=== PATIENT | female | born 1990 | race African-American/Black ===

== ENCOUNTER 2018-01-19 10:12 | Inpatient (IN) ==
[2018-01-19] MEDS ORDERED: Naloxone Inj 0.4 MG/ML Vial IV.PUSH PRN (11:14)
[2018-01-19] MEDS ORDERED: Sodium Chlor 0.9% Inj 500 ML IV.SIG PRN (11:14)
[2018-01-19] MEDS ORDERED: fentaNYL Citrate Inj 100 MCG/2 ML Ampul IV.PUSH PRN ×2 (11:14)
[2018-01-19] MEDS ORDERED: Sod Chloride 0.9% Inj 1,000 ML IV.CONT PRN (11:14)
[2018-01-19] MEDS ORDERED: Oxytocin 30 Units/500ml Premix 30 UNITS/500 ML BAG IV.SIG ONE ×2 (11:14→20:16)
[2018-01-19] MEDS ORDERED: Citric Acid/Sodium Citrate Liq 30 ML UDC PO SCH (11:15)
--- NOTE | 2018-01-19 11:20 | P.HPOB ---
History of Present Illness Service: obstetrics Primary Care Physician: No Primary Care Physician Chief Complaint: SROM/contractions History of Present Illness: 27 yo with EDC 01/18/18 presents for c/o leakage of fluid and contractions, ruled in for rupture, clear fluid. Pt was late entry to care at 29 weeks, had been seen at 15 weeks in [place]. History of alcohol abuse in first trimester, lost custody of first child due to DUI. Has history of with prior delivery in 2014 for chorioamnionitis/non-reassuring heart tones, operative note reviewed by me, confirms low transverse uterine incision. Patient desires trial of labor. GBS negative. Weeks Gestation:: 40 Para: 1 : 2 Last menstrual period: 04/13/17 Total # of Miscarriage(s): 0 Total # of Abortions (Spontaneous & Elective): 0 - Inpatient Certification I certify that the inpatient services were ordered in accordance with Medicare regulations governing the order. This includes certification that hospital inpatient services are reasonable and necessary and in the case of services not specified as inpatient-only under 42 CFR 419.22(n), that they are appropriately provided as inpatient services in accordance to with the 2-midnight benchmark under 43 CFR 412.3(e) Estimated Total Length of Stay (Days): 4 Plans for Post Hospital Care: Home Review of Systems All other systems reviewed negative except as stated in [facility] - Medical History Medical History: Medical History (Last Updated 01/19/18 @ 11:19 by Kisha Melendez MD) ADHD History of alcohol abuse Migraines - Surgical History Surgical History: Surgical History (Last Updated 01/19/18 @ 11:19 by Kisha eMlendez MD) History of delivery - Family History Family History: Family History (Last Updated 01/19/18 @ 11:23 by Kisha Melendez MD) Other No significant family history - Social History I have reviewed the patient's Social History: Yes - Tobacco History Second Hand Smoke Exposure: No Tobacco Use In Past 30 Days: No Smoking Status: Former smoker - Substance Use History Substance History: Past History (history of alcohol abuse through first trimester) - Travel History History of Recent Travel: No Recent Travel in the [place] Within the Last 8 Weeks: No Recent Travel Out of the Country Within the Last 8 Weeks: No Medications and Allergies Allergies Allergy/AdvReac Type Severity Reaction Status Date / Time latex Allergy Hives Verified 01/19/18 10:53 Sulfa (Sulfonamide Allergy Hives Verified 01/19/18 10:56 Antibiotics) Exam Vital signs: Vital Signs 01/19/18 10:39 01/19/18 10:45 Pulse Rate 61 Respiratory Rate 18 Blood Pressure 108/61 - Constitutional mild distress - Routine HEENT Exam Head: Present: normocephalic, atraumatic Eye: Present: EOMI, conjunctivae pink ENT: Present: mucous membranes moist. Absent: sinus tenderness - Routine Neck Exam Present: supple, full ROM - Routine Chest/Breast/Axilla Exam Chest wall: Absent: tenderness, mass - Routine Respiratory Exam Absent: accessory muscle use, decreased breath sounds - Routine Cardiovascular Exam Present: RRR. Absent: bradycardia - Routine Abdominal Exam Absent: guarding Comments: gravid c/w dates - Routine Extremities Exam Absent: cyanosis, clubbing - Routine Skin Exam Present: intact. Absent: erythema - Routine Neurological Exam Present: alert, oriented X3 Results - Labs Group B Strep: Negative Caprini VTE Risk Assessment Caprini VTE Risk Assessment: No/Low Risk (score <= 1) VTE Pharmacological Exception Reason: Epidural catheter Caprini Risk Assessment Model: Point Value = 1 Point Value = 2 Point Value = 3 Point Value = 5 Age 41-60 Minor surgery BMI > 25 kg/m2 Swollen legs Varicose veins or History of unexplained or recurrent spontaneous Oral contraceptives or hormone replacement Sepsis (< 1 month) Serious lung disease, including pneumonia (< 1 month) Abnormal pulmonary function Acute myocardial infarction Congestive heart failure (< 1 month) History of inflammatory bowel disease Medical patient at bed rest Age 61-74 Arthroscopic surgery Major open surgery (> 45 min) Laparoscopic surgery (> 45 min) Malignancy Confined to bed (> 72 hours) Immobilizing plaster cast Central venous access Age >= 75 History of VTE Family history of VTE Factor V Leiden Prothrombin [id number] Lupus anticoagulant Anticardiolipin antibodies Elevated serum homocysteine Heparin-induced thrombocytopenia Other congenital or acquired thrombophilia Stroke (< 1 month) Elective arthroplasty Hip, pelvis, or leg fracture Acute spinal cord injury (< 1 month) Prophylaxis Regimen: Total Risk Factor Score Risk Level Prophylaxis Regimen 0-1 Low Early ambulation 2 Moderate Order ONE of the following: *Sequential Compression Device (SCD) *Heparin 5000 units SQ BID 3-4 Higher Order ONE of the following medications: *Heparin 5000 units SQ TID *Enoxaparin/Lovenox 40 mg SQ daily (WT < 150 kg, CrCl > 30 mL/min) *Enoxaparin/Lovenox 30 mg SQ daily (WT < 150 kg, CrCl > 10-29 mL/min) *Enoxaparin/Lovenox 30 mg SQ BID (WT < 150 kg, CrCl > 30 mL/min) AND/OR *Sequential Compression Device (SCD) 5 or more Highest Order ONE of the following medications: *Heparin 5000 units SQ TID (Preferred with Epidurals) *Enoxaparin/Lovenox 40 mg SQ daily (WT < 150 kg, CrCl > 30 mL/min) *Enoxaparin/Lovenox 30 mg SQ daily (WT < 150 kg, CrCl > 10-29 mL/min) *Enoxaparin/Lovenox 30 mg SQ BID (WT < 150 kg, CrCl > 30 mL/min) AND *Sequential Compression Device (SCD) Assessment and Plan - Diagnosis (1) Active labor at term Status: Acute (2) Leakage, amniotic fluid Code(s): O42.90 - Premature rupture of membranes, unspecified as to length of time between rupture and onset of labor, unspecified weeks of gestation Status : Acute (3) History of delivery Code(s): Z98.891 - History of uterine scar from previous surgery Status: Chronic (4) 40 weeks gestation of Code(s): Z3A.40 - 40 weeks gestation of Status: Acute - Plan 27 yo with EDC 01/18/18 presents to OB ED with c/o leakage of fluid, contractions, rules in for SROM/labor, h/o desires TOLAC 1) SROM/labor, h/o : reviewed r/b/a of TOLAC, pt consents, ruled in for SROM, admit for active mgmt 2) GBS neg 3) h/o alcohol abuse in first trimester: aware, pt states has been clean since 15 weeks gestation; did lose custody of first child due to DUI (pt's mother has custody) 4) status: vertex, female, Cat I tracing Discharge Planning: routine, 2-3d PP
[2018-01-19 12:12] LABS: Baso % (Auto) 0.2 % (0.0-2.0); Eos % (Auto) 0.4 % (0.0-4.0); Hematocrit 36.5 % (35.0-46.0); Hemoglobin 12.1 gm/dL (11.6-15.3); Lymph # (Auto) 0.9 th/mm3 (1.0-4.8); Mean Corpuscular HGB Conc 33.2 % (32.0-36.0); Mean Corpuscular Hemoglobin 30.7 pg (27.0-34.0); Mean Corpuscular Volume 92.6 fL (80.0-100.0); Mean Platelet Volume 8.3 fL (7.0-11.0); Mono # (Auto) 0.5 th/mm3 (0.0-0.9); Mono % (Auto) 5.4 % (0.0-8.0); Platelet Count 228 th/mm3 (150-450); Red Blood Count 3.94 mil/mm3 (4.00-5.30); Red Cell Distribution Width 12.3 % (11.6-17.2); White Blood Count 9.5 th/mm3 (4.0-11.0)
[2018-01-19] MEDS ORDERED: fentaNYL 2MCG-Bupiv 0.125% Epi 150 ML EPIDURAL ONE (12:40)
[2018-01-19] MEDS ORDERED: Lidocaaine 1.5%/Epinephrine 1:200,000 PF Inj 5 ML Amp ONE (12:47)
[2018-01-19] MEDS ORDERED: Lidocaine PF 1% Inj 5 ML Vial ONE (12:47)
[2018-01-19] MEDS ORDERED: Oxytocin 30 Units/500ml Premix 30 UNITS/500 ML BAG IV.SIG PRN (13:42)
[2018-01-19] MEDS ORDERED: fentaNYL Citrate Inj 100 MCG/2 ML Ampul EPIDURAL ONE (13:49)
[2018-01-19] MEDS ORDERED: fentaNYL 2MCG-Bupiv 0.125% Epi 150 ML EPIDURAL PRN (13:49)
[2018-01-19 13:57] LABS: Amphetamine Screen,Urine Neg (Neg); Barbiturate Screen,Urine Neg (Neg); Cannabinoid Screen,Urine Neg (Neg); Cocaine Screen,Urine Neg (Neg)
[2018-01-19 13:59] LABS: Opiate Screen,Urine Neg (Neg)
[2018-01-19 14:03] LABS: Bilirubin,Urine Negative (Negative); Clarity,Urine Clear (Clear); Color,Urine Yellow (Yellw/Straw); Glucose,Urine (UA) Negative (Negative); Leukocyte Esterase,Urine Negative (Negative); Mucus,Urine Moderate /lpf (Occasional); Nitrite,Urine Negative (Negative); Squamous Epithelial Cell,Urine 3 /hpf (0-5)
[2018-01-19 14:21] LABS: Amphetamine Urine With Conf Neg (Neg); Benzodiazepine Urine With Conf Neg (Neg)
--- NOTE | 2018-01-19 19:11 | P.OBGPN ---
To bedside to evaluate due to repetitive variable decelerations in the late position. Pt with O2 by facemask, being turned from right to left lateral position. Prior check SVE 8/C/0, this check 50/0 with cervical swelling. D/ w pt unfavorable exam, concern for early chorioamnionitis and intolerance of labor, recommendation to proceed with repeat . Patient understands, consents. To OR, team notified.
[2018-01-19] MEDS ORDERED: ceFAZolin Inj 2,000 MG in Sodium Chlor 0.9% Inj 80 ML IV.SIG ONE (19:15)
[2018-01-19] MEDS ORDERED: Morphine Sulfate PF Inj 5 MG/10 ML Ampul ONE (19:18)
[2018-01-19] MEDS ORDERED: Simethicone 80 MG Chew Tablet PO PRN (20:16)
[2018-01-19] MEDS ORDERED: Zolpidem Tartrate 5 MG Tablet PO PRN (20:16)
[2018-01-19] MEDS ORDERED: Acetaminophen 325 MG Tablet PO PRN (20:16)
--- NOTE | 2018-01-19 20:20 | P.OBDELI ---
Procedure Note - Pre Op Diagnosis (1) Non-reassuring heart rate or rhythm affecting management of mother (2) History of delivery (3) Leakage, amniotic fluid (4) 40 weeks gestation of (5) Active labor at term Performed by: Kisha Melendez MD Procedure: Repeat Low Transverse Section Indication for Delivery: Nonreassuring heart tracing Informed Consent Obtained: For anesthesia, For procedure Confirmed Correct: Patient, Procedure, Site, Time-out taken Anesthesia: Epidural Medication Prior to Procedure: As documented in eMAR Monitoring During Procedure: Blood pressure monitoring, Pulse oximetry Urinary Catheter: To dependent drainage, ml urine output (200), Other (already in place as part of labor process) Sterile Preparation: Duraprep, In usual fashion, With drapes to expose affected area Position: Supine with wedge to right side - Operative Features Skin Incision: Pfannenstiel Uterine Incision: Low transverse w/knife / scissors Membranes Ruptured: Previously, Amount of liquid (moderate), Appearance of fluid (clear) Presentation: Vertex Status of : Viable, Cord blood, Nursery present Placenta Delivered: Intact Medications: Antibiotics (ancef 2g IV preop) Estimated blood loss (mL): 700 Procedure Tolerated: Well Maternal Condition: Stable Baby Condition: Stable - : Female Female A Delivery Date: 01/19/18 Infant Delivery Time: 19:43 Weight: 3410 kg Delivery of : Uneventful score (1 min): 9 score (5 min): 9
--- NOTE | 2018-01-19 23:39 | MP ---
cc: Kisha Melendez MD DATE OF OPERATION: 01/19/2018 PREOPERATIVE DIAGNOSES: 1. intolerance of labor. 2. History of delivery. 3. Lazcano term at 40 weeks and 1 day. POSTOPERATIVE DIAGNOSES: 1. intolerance of labor. 2. History of delivery. 3. Lazcano term at 40 weeks and 1 day. 4. Postoperative day number 0, status post repeat low transverse delivery. INDICATIONS: Tammie Phillips is a 27-year-old 2, now para 2-0-0-2, who had a history of a prior low transverse delivery, but desired a trial of labor. She presented to labor and delivery with complaints of spontaneous rupture of membranes in the morning hours on the 19 of January. She was vannesa regularly and cervix was felt to be favorable, so she was admitted for trial of labor after . The patient started to have recurrent variable decelerations in the late position. The cervical exam had progressed to 8, complete effacement, and 0 station, but after a short time frame and some nonreassuring heart tones exam was repeated and cervix was felt to be swollen, approximately 7 cm dilated, 50% effaced, and 0 station. This was a concern and it was discussed with the patient the recommendation for proceeding with repeat . The patient consented and she was taken to the operating room. PROCEDURE PERFORMED: Repeat low transverse delivery. SURGEON: Kisha Melendez MD ANESTHESIA: Epidural. ESTIMATED BLOOD LOSS: 700 mL. IV FLUID REPLACEMENT: 1200 mL. URINE OUTPUT: 200 mL clear urine draining in the Wiseman bag at the end of the procedure. COMPLICATIONS: None. COUNTS: The sponge, lap, instrument and needle correct x2 at the conclusion of the procedure. PROPHYLAXIS: Ancef 2 grams IV was given preoperatively and SCDs were on and functioning throughout the entire case. SPECIMEN: None. INTRAOPERATIVE FINDINGS: Include a vigorous viable female with Apgars of 9 and 9, weight of 3410 grams, correlating to 7 pounds 8 ounces. The amniotic fluid was copious and clear, normal appearing bilateral ovaries and fallopian tubes. Minimal scar tissue noted. PROCEDURE IN DETAIL: After reviewing the informed consent, the patient was taken to the operating suite, where a timeout was performed to identify the patient, planned procedure, any known allergies to drugs or drug products. The patient already had epidural and Wiseman catheter in place as per the labor process, so she was placed in dorsal supine position with a bump under her right side once she entered the operating room. Abdomen was prepped and draped in normal sterile fashion. A Pfannenstiel type skin incision was made with the scalpel and carried down to the underlying layer of fascia with the Bovie. The fascia was incised in the midline. Incision was extended laterally with Weiss scissors. Kochers were used to elevate the superior and inferior edges of the fascia and rectus muscles were dissected off sharply with Weiss scissors. Rectus muscles were then in the midline and peritoneum was identified, entered bluntly with surgeon's index finger. Incision was extended with good visualization of pelvic contents. Bladder blade was placed. A bladder flap was made using pickups and Metzenbaum scissors. The bladder blade was then replaced. Low transverse uterine incision was made with the scalpel and was extended bluntly. Infant's head was grasped and flexed, elevated out through the incision. With gentle maneuvering, the was easily delivered. Immediately upon delivery, infant was crying and vigorous. Delayed cord clamping of 45 seconds was performed. The cord was doubly clamped and cut and then was handed off to the awaiting nursery staff. Cord blood sample was taken. Placenta was delivered spontaneously with gentle cord traction and fundal massage. Uterus was then exteriorized, cleared of all clots and debris with sterile moist lap sponges. The hysterotomy was repaired in a double-layer, first in running locking layer using #1 chromic and then in an imbricating layer. Posterior cul-de-sac was irrigated with warm sterile saline. Uterus was returned to the abdomen. Excellent hemostasis was noted at the repaired hysterotomy. Interceed was placed over this layer to act as an adhesion barrier. Peritoneum was then reapproximated with 2-0 chromic. The fascia was closed in running layer with #1 Vicryl. Subcutaneous tissue was irrigated and hemostasis was assured with the Bovie. The skin was then closed in a subcuticular fashion with 3-0 Monocryl. The skin was cleaned and dried, and a sterile dressing was placed. The procedure concluded at this point. The patient tolerated the procedure well. DISPOSITION: The patient's estimated length of stay is 2-3 postoperative days. Infant is nursery status. MD Audrey Rodarte , 08:15 PM , 08:23 PM [facility]
[2018-01-20] MEDS ORDERED: Oxytocin 30 Units/500ml Premix 30 UNITS/500 ML BAG IV.SIG PRN (01:17)
[2018-01-20 05:27] LABS: Baso % (Auto) 0.2 % (0.0-2.0); Hematocrit 29.6 % (35.0-46.0); Hemoglobin 9.9 gm/dL (11.6-15.3); Lymph # (Auto) 1.1 th/mm3 (1.0-4.8); Lymph % (Auto) 6.3 % (9.0-44.0); Mean Corpuscular HGB Conc 33.4 % (32.0-36.0); Mean Corpuscular Hemoglobin 30.5 pg (27.0-34.0); Mean Corpuscular Volume 91.3 fL (80.0-100.0); Mean Platelet Volume 7.6 fL (7.0-11.0); Mono # (Auto) 0.7 th/mm3 (0.0-0.9); Neut # (Auto) 15.1 th/mm3 (1.8-7.7); Neut % (Auto) 89.5 % (16.0-70.0); Platelet Count 191 th/mm3 (150-450); Red Blood Count 3.25 mil/mm3 (4.00-5.30); Red Cell Distribution Width 12.1 % (11.6-17.2); White Blood Count 16.9 th/mm3 (4.0-11.0)
--- NOTE | 2018-01-20 08:09 | P.PNOB ---
Subjective Post op day: 1 Interval history: feeling ok, still sore, surgery only done around 8pm last evening; khan still in place, infant Objective Vital Signs/I&O: Vital Signs 01/19/18 10:39 01/19/18 10:45 01/19/18 12:51 Temperature Pulse Rate 61 74 Respiratory Rate 18 18 Blood Pressure 108/61 117/67 01/19/18 12:55 01/19/18 13:05 01/19/18 13:08 Temperature 97.8 F Pulse Rate 76 89 Respiratory Rate 18 Blood Pressure 111/71 110/65 01/19/18 13:11 01/19/18 13:25 01/19/18 13:44 Temperature Pulse Rate 88 92 H 80 Respiratory Rate 18 Blood Pressure 100/54 L 100/43 L 106/56 L 01/19/18 13:55 01/19/18 14:10 01/19/18 14:29 Temperature Pulse Rate 79 83 77 Respiratory Rate 18 18 Blood Pressure 105/60 105/46 L 102/53 L 01/19/18 14:40 01/19/18 14:50 01/19/18 15:10 Temperature Pulse Rate 70 77 80 Respiratory Rate Blood Pressure 107/81 91/40 L 98/55 L 01/19/18 15:15 01/19/18 15:35 01/19/18 15:40 Temperature 98.5 F Pulse Rate 83 Respiratory Rate 18 18 Blood Pressure 98/66 L 01/19/18 15:45 01/19/18 16:15 01/19/18 16:20 Temperature Pulse Rate 73 78 75 Respiratory Rate 18 Blood Pressure 108/88 94/58 L 107/66 01/19/18 16:30 01/19/18 16:45 01/19/18 16:55 Temperature 98.8 F Pulse Rate 77 74 Respiratory Rate 18 18 Blood Pressure 108/61 109/63 01/19/18 17:15 01/19/18 17:25 01/19/18 17:45 Temperature Pulse Rate 73 76 80 Respiratory Rate 18 18 Blood Pressure 103/56 L 99/69 L 101/58 L 01/19/18 18:15 01/19/18 18:30 01/19/18 18:39 Temperature Pulse Rate 80 81 84 Respiratory Rate 18 18 18 Blood Pressure 103/57 L 118/64 112/60 01/19/18 18:55 01/19/18 19:10 01/19/18 19:30 Temperature 98.2 F Pulse Rate 84 79 75 Respiratory Rate 18 18 18 Blood Pressure 101/51 L 98/50 L 122/78 01/19/18 20:20 01/19/18 20:28 01/19/18 20:45 Temperature 98.0 F Pulse Rate 75 96 H 79 Respiratory Rate 18 19 18 Blood Pressure 96/52 L 97/54 L 108/54 L 01/19/18 21:00 01/19/18 21:13 01/19/18 21:52 Temperature 98.3 F Pulse Rate 67 70 62 Respiratory Rate 18 18 18 Blood Pressure 112/56 L 118/57 L 102/54 L 01/20/18 01:45 01/20/18 05:15 Temperature 98.4 F 98.0 F Pulse Rate 62 61 Respiratory Rate 17 18 Blood Pressure 98/51 L 99/51 L Intake & Output 01/19/18 01/20/18 01/20/18 18:59 06:59 18:59 Intake Total 1000 / 1000 Balance 1000 / 1000 Weight 64 kg Intake: IV 1000 / 1000 LR 1000 mL Inj 1,000 ML @ 3000 1000 / 1000 mls/hr IV.SIG UNSCH PRN Rx#: [id number] Other: Weight On Admission 64 kg Result Diagrams: 01/20/18 05:20 Objective Remarks: GENERAL: Well-nourished, well-developed patient. CARDIOVASCULAR: Regular rate and rhythm without murmurs, gallops, or rubs. RESPIRATORY: Breath sounds equal bilaterally. No accessory muscle use. ABDOMEN/GI: Abdomen soft, non-tender, bowel sounds present. Incision: bandage in place; Clean, dry and intact. Fundus: Firm, non-tender at umbilicus. GENITOURINARY: Light bleeding. EXTREMITIES: No cyanosis or edema, non-tender, without signs of DVT. Medications and IVs: Active Medications Acetaminophen (Tylenol) 650 mg PO Q6H PRN PRN Reason: PAIN SCALE 1 TO 2 Lactated Ringer's (Lr 1000 Ml Inj) 1,000 mls @ 100 mls/hr IV.CONT .Q10H [place] Stop: 01/20/18 21:16 Oxytocin (Pitocin 30 Units/Ns 500 Ml Premix) 30 units in 500 mls @ 100 mls/hr IV.SIG UNSCH PRN PRN Reason: Heavy bleeding Ibuprofen (Motrin) 800 mg PO Q8H PRN PRN Reason: cramping Ketorolac Tromethamine (Toradol Inj) 30 mg IM Q6H PRN PRN Reason: SEE LABEL COMMENTS Stop: 01/24/18 20:15 Ondansetron HCl (Zofran Inj) 4 mg IV.PUSH Q6H PRN PRN Reason: NAUSEA OR VOMITING Oxycodone/Acetaminophen (Percocet 5/325 Mg) 1 tab PO Q4H PRN PRN Reason: PAIN SCALE 3 TO 5 Oxycodone/Acetaminophen (Percocet 5/325 Mg) 2 tab PO Q4H PRN PRN Reason: PAIN SCALE 6 TO 10 Senna/Docusate Sodium (Luz Maria-Colace) 2 tab PO Q12H PRN PRN Reason: CONSTIPATION Simethicone (Mylicon Chew) 80 mg PO QID PRN PRN Reason: FLATULENCE Sodium Chloride (Ns Flush) 2 ml IV.FLUSH BID [place] Sodium Chloride (Ns Flush) 2 ml IV.FLUSH PRN PRN PRN Reason: FLUSH AFTER USING IV ACCESS Zolpidem Tartrate (Ambien) 5 mg PO HS PRN PRN Reason: INSOMNIA Assessment and Plan - Diagnosis (1) S/P repeat low transverse Code(s): Z98.891 - History of uterine scar from previous surgery Status: Acute (2) Leakage, amniotic fluid Code(s): O42.90 - Premature rupture of membranes, unspecified as to length of time between rupture and onset of labor, unspecified weeks of gestation Status : Acute (3) Active labor at term Status: Acute (4) History of delivery Code(s): Z98.891 - History of uterine scar from previous surgery Status: Chronic (5) 40 weeks gestation of Code(s): Z3A.40 - 40 weeks gestation of Status: Acute - Plan 27 yo s/p repeat LTCD after failed attempt at TOLAC, NRFHTs at 7-8cm POD#1 - doing well, encouraged ambulation, shower, remove bandage, reviewed postop wound care; not yet meeting discharge criteria Discharge Planning: routine, 3d PP
[2018-01-20] MEDS: Senna/Docusate Sodium 8.6/50 MG Tablet PO PRN ×2 (08:46→20:19)
--- NOTE | 2018-01-21 07:54 | P.PNOB ---
Subjective Post op day: 2 Interval history: doing well patient's mom in room daughter at home is [age] no complaints Objective Vital Signs/I&O: Vital Signs 01/20/18 08:00 01/20/18 15:55 01/20/18 19:25 Temperature 97.5 F L 98.3 F 98.2 F Pulse Rate 70 71 83 Respiratory Rate 16 20 18 Blood Pressure 96/50 L 103/60 108/58 L 01/21/18 00:44 Temperature 98.1 F Pulse Rate 78 Respiratory Rate 17 Blood Pressure 104/59 L Result Diagrams: 01/20/18 05:20 Objective Remarks: GENERAL: Well-nourished, well-developed patient. CARDIOVASCULAR: Regular rate and rhythm without murmurs, gallops, or rubs. RESPIRATORY: Breath sounds equal bilaterally. No accessory muscle use. ABDOMEN/GI: Abdomen soft, non-tender, bowel sounds present. Incision: Clean, dry and intact. Fundus: Firm, non-tender at umbilicus. GENITOURINARY: Light to moderate bleeding. EXTREMITIES: No cyanosis or edema, non-tender, without signs of DVT. Medications and IVs: Active Medications Acetaminophen (Tylenol) 650 mg PO Q6H PRN PRN Reason: PAIN SCALE 1 TO 2 Oxytocin (Pitocin 30 Units/Ns 500 Ml Premix) 30 units in 500 mls @ 100 mls/hr IV.SIG UNSCH PRN PRN Reason: Heavy bleeding Ibuprofen (Motrin) 800 mg PO Q8H PRN PRN Reason: cramping Last Admin: 01/21/18 04:54 Dose: 800 mg Ketorolac Tromethamine (Toradol Inj) 30 mg IM Q6H PRN PRN Reason: SEE LABEL COMMENTS Stop: 01/24/18 20:15 Ondansetron HCl (Zofran Inj) 4 mg IV.PUSH Q6H PRN PRN Reason: NAUSEA OR VOMITING Oxycodone/Acetaminophen (Percocet 5/325 Mg) 1 tab PO Q4H PRN PRN Reason: PAIN SCALE 3 TO 5 Oxycodone/Acetaminophen (Percocet 5/325 Mg) 2 tab PO Q4H PRN PRN Reason: PAIN SCALE 6 TO 10 Last Admin: 01/21/18 04:53 Dose: 2 tab Senna/Docusate Sodium (Luz Maria-Colace) 2 tab PO Q12H PRN PRN Reason: CONSTIPATION Last Admin: 01/20/18 20:19 Dose: 2 tab Simethicone (Mylicon Chew) 80 mg PO QID PRN PRN Reason: FLATULENCE Sodium Chloride (Ns Flush) 2 ml IV.FLUSH BID [place] Last Admin: 01/21/18 04:40 Dose: Not Given Sodium Chloride (Ns Flush) 2 ml IV.FLUSH PRN PRN PRN Reason: FLUSH AFTER USING IV ACCESS Zolpidem Tartrate (Ambien) 5 mg PO HS PRN PRN Reason: INSOMNIA Assessment and Plan - Diagnosis (1) S/P repeat low transverse Code(s): Z98.891 - History of uterine scar from previous surgery Status: Acute (2) Leakage, amniotic fluid Code(s): O42.90 - Premature rupture of membranes, unspecified as to length of time between rupture and onset of labor, unspecified weeks of gestation Status : Acute (3) Active labor at term Status: Acute (4) History of delivery Code(s): Z98.891 - History of uterine scar from previous surgery Status: Chronic (5) 40 weeks gestation of Code(s): Z3A.40 - 40 weeks gestation of Status: Acute - Plan 27 yo s/p repeat LTCD after failed attempt at TOLAC, NRFHTs at 7-8cm POD#1 - doing well, encouraged ambulation, shower, remove bandage, reviewed postop wound care; not yet meeting discharge criteria 01/21/18 0800 Doing well POD 2 mild anemia anticipate discharge tomorrow RTO 1 week discussed contraception Discharge Planning: routine, 3d PP
[2018-01-21] MEDS: Senna/Docusate Sodium 8.6/50 MG Tablet PO PRN (23:31)
--- NOTE | 2018-01-22 08:30 | P.PNOB ---
Subjective Post op day: 2 Interval history: POD#3; Stable, doing well. Anticipate discharge today. Objective Vital Signs/I&O: Vital Signs 01/21/18 19:48 Temperature 99.2 F Pulse Rate 81 Respiratory Rate 18 Blood Pressure 106/63 Result Diagrams: 01/20/18 05:20 Objective Remarks: GENERAL: Well-nourished, well-developed patient. CARDIOVASCULAR: Regular rate and rhythm without murmurs, gallops, or rubs. RESPIRATORY: Breath sounds equal bilaterally. No accessory muscle use. ABDOMEN/GI: Abdomen soft, non-tender, bowel sounds present. Incision: Clean, dry and intact. Fundus: Firm, non-tender at umbilicus. GENITOURINARY: Light to moderate bleeding. EXTREMITIES: No cyanosis or edema, non-tender, without signs of DVT. Medications and IVs: Active Medications Acetaminophen (Tylenol) 650 mg PO Q6H PRN PRN Reason: PAIN SCALE 1 TO 2 Oxytocin (Pitocin 30 Units/Ns 500 Ml Premix) 30 units in 500 mls @ 100 mls/hr IV.SIG UNSCH PRN PRN Reason: Heavy bleeding Ibuprofen (Motrin) 800 mg PO Q8H PRN PRN Reason: cramping Last Admin: 01/22/18 08:08 Dose: 800 mg Ketorolac Tromethamine (Toradol Inj) 30 mg IM Q6H PRN PRN Reason: SEE LABEL COMMENTS Stop: 01/24/18 20:15 Ondansetron HCl (Zofran Inj) 4 mg IV.PUSH Q6H PRN PRN Reason: NAUSEA OR VOMITING Oxycodone/Acetaminophen (Percocet 5/325 Mg) 1 tab PO Q4H PRN PRN Reason: PAIN SCALE 3 TO 5 Oxycodone/Acetaminophen (Percocet 5/325 Mg) 2 tab PO Q4H PRN PRN Reason: PAIN SCALE 6 TO 10 Last Admin: 01/22/18 08:08 Dose: 2 tab Senna/Docusate Sodium (Luz Maria-Colace) 2 tab PO Q12H PRN PRN Reason: CONSTIPATION Last Admin: 01/21/18 23:31 Dose: 2 tab Simethicone (Mylicon Chew) 80 mg PO QID PRN PRN Reason: FLATULENCE Last Admin: 01/21/18 08:15 Dose: 80 mg Sodium Chloride (Ns Flush) 2 ml IV.FLUSH BID [place] Last Admin: 01/22/18 08:09 Dose: Not Given Sodium Chloride (Ns Flush) 2 ml IV.FLUSH PRN PRN PRN Reason: FLUSH AFTER USING IV ACCESS Zolpidem Tartrate (Ambien) 5 mg PO HS PRN PRN Reason: INSOMNIA Assessment and Plan - Diagnosis (1) S/P repeat low transverse Code(s): Z98.891 - History of uterine scar from previous surgery Status: Acute (2) Leakage, amniotic fluid Code(s): O42.90 - Premature rupture of membranes, unspecified as to length of time between rupture and onset of labor, unspecified weeks of gestation Status : Acute (3) Active labor at term Status: Acute (4) History of delivery Code(s): Z98.891 - History of uterine scar from previous surgery Status: Chronic (5) 40 weeks gestation of Code(s): Z3A.40 - 40 weeks gestation of Status: Acute - Plan 27 yo s/p repeat LTCD after failed attempt at TOLAC, NRFHTs at 7-8cm POD#1 - doing well, encouraged ambulation, shower, remove bandage, reviewed postop wound care; not yet meeting discharge criteria 01/21/18 0800 Doing well POD 2 mild anemia anticipate discharge tomorrow RTO 1 week discussed contraception. 01/22/18 0829 POD#3, cleared for discharge. RTO in 1 week Discharge Planning: routine, today
[2018-01-22 09:21] VITALS: BP 95/66
[2018-01-22 09:22] VITALS: PULSE 72; RESP 21
[2018-01-22 09:23] VITALS: TEMP 98.1
== END 2018-01-22 17:01 | disposition home or self-care (01) ==
LOC: HOBED 10:12 → H2E 11:11 → H1EA 21:17
PROVIDERS: ADMIT Obstetrics & Gynecology; ATTEND Obstetrics & Gynecology